=== PATIENT | male | born 1965 | race American Indian/Alaskan Native ===

== ENCOUNTER 2018-08-27 06:58 | Day surgery (SDC) | payer OTHER ==
[2018-08-27] MEDS ORDERED: XYLOCAINE 2% INFILTRATI ONE (07:29)
[2018-08-27] MEDS ORDERED: DIPRIVAN 10 MG/ML IV ONE ×2 (07:30)
[2018-08-27] MEDS ORDERED: NACL 0.9% 1000 ML 1,000 ML IV SCH (08:00)
--- NOTE | 2018-08-27 08:14 | Operative Report ---
Operative Report Operative Report: DOS: 08/27/2018 SURGEON: Arian Mejia MD COLONOSCOPY REPORT PREOPERATIVE AND POSTOPERATIVE DIAGNOSIS: screening colonoscopy DESCRIPTION OF PROCEDURE: The colonoscope was passed to the terminal ileum as identified by the ileal tissue. Scope was carefully withdrawn. Retroflexion was performed in the rectum. At the end of procedure, the scope was cleaned using normal technique. Vital signs monitored continuously throughout. SEDATION: Provided by [facility]. Quality of the prep was good COMPLICATIONS: None. ESTIMATED BLOOD LOSS: none FINDINGS: * Normal Terminal Ileum * Medium internal hemorrhoids * Remainder of the exam was normal RECOMMENDATIONS: * Repeat screening colonoscopy in 10 years * Rectal bleeding is due to hemorrhoids, patient may return to my office for outpatient based hemorrhoid banding therapy if desired CC note to PCP, Dr. Lydia Raines
--- NOTE | 2018-08-27 08:22 | Anesthesia Consultation ---
Anesthesia Consult and Med Hx - Airway Anesthetic Teeth Evaluation: Good ROM Head & Neck: Adequate Mental/Hyoid Distance: Adequate Mallampati Class: Class I - Pulmonary Exam CTA: Yes - Cardiac Exam Cardiac Exam: RRR - Pre-Operative Health Status ASA Pre-Surgery Classification: ASA2 Proposed Anesthetic Plan: General, MAC - Cardiovascular System Hx Hypertension: Yes
--- NOTE | 2018-08-27 08:23 | Anesthesia Day of Surgery ---
Anesthesia Day of Surgery - Day of Surgery Patient Examined: Yes Patient H&P Reviewed: Yes Patient is NPO: Yes Cardiac Clearance: No Pulmonary Clearance: No
--- NOTE | 2018-08-27 08:24 | Post Anesthesia Evaluation ---
- Post Anesthesia Evaluation Patient Participated: Yes Airway Patent: Yes Stable Respiratory Function: Yes Nausea/Vomiting: No Temp > 96.8F: Yes Pain Manageable: Yes Adequeate Hydration: Yes Anesthesia Complications: No Block Receding Appropriately: Not Applicable Patient on Ventilator: No
[2018-08-27 08:43] VITALS: BP 148/86
[2018-08-27] MEDS ORDERED: WATER FOR IRRIG STERILE IR ONE (09:22)
== END 2018-08-27 06:59 | disposition home or self-care (01) ==
LOC: GIO 06:58
PROVIDERS: ATTEND Student in an Organized Health Care Education/Training Program
DX: Z12.11 Encounter for screening for malignant neoplasm of colon (principal); K64.8 Other hemorrhoids; I10 Essential (primary) hypertension; Z79.899 Other long term (current) drug therapy
CPT/HCPCS: 45378; J2704; J7030